=== PATIENT | female | born 1930 | race Caucasian/White ===

== ENCOUNTER → 2018-11-13 | Outpatient (CLI) | payer MEDICARE ==
--- NOTE | 2018-11-13 11:24 | Diagnostic Imaging Report ---
INDICATION: Pain in both hands. Time of exam: 10:58 AM Multiple views of the bilateral hands were obtained. The distal radius and ulna are intact bilaterally. Carpal bones are unremarkable apart from some triscaphe and first CMC joint degenerative changes bilaterally, greatest on the left. There appear to be subluxations of the MCP joints of the second and third fingers on the right and left. In addition, there appear to be some erosive changes of the metatarsal heads on the left, numbers 2 and 3. Erosive changes appear to be in the marginal location. Generalized interphalangeal joint degenerative change without evidence of osseous erosions. Soft tissues are unremarkable. No soft tissue calcifications are seen. No fractures are identified. There is generalized demineralization bilaterally. IMPRESSION: 1. 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 2. Generalized demineralization. There is subluxations of the second and third MCP joints bilaterally. There also appear to be some osseous marginal erosive changes on the left involving the second and third distal metacarpals. Dictated by: Dictated on workstation # [id number]
== END ==
LOC: RAD FS 10:53
PROVIDERS: ATTEND Family Medicine
DX: M19.041 Primary osteoarthritis, right hand (principal); M19.042 Primary osteoarthritis, left hand; M81.8 Other osteoporosis without current pathological fracture; M24.842 Other specific joint derangements of left hand, not elsewhere classified; M24.841 Other specific joint derangements of right hand, not elsewhere classified

== ENCOUNTER 2019-07-24 13:37 | Emergency (ER) | payer MEDICARE ==
[~2019-07-24] VITALS: Ht 152 cm; Wt 59.0 kg
--- NOTE | 2019-07-24 14:54 | ED Lower Extremity ---
General Chief Complaint: General Problems/Pain Stated Complaint: FEET SWELLING/CRAMPING Nursing Triage Note: PT REPORTS SWOLLEN FEET X 5 DAYS. CRAMPING IN HER LEGS AT NIGHT AND SOME INTERMITTENT SHORTNESS OF BREATH. Nursing Sepsis Screen: No Definite Risk Source: patient Exam Limitations: no limitations (CHRISTY HUANG MED STUDENT) History of Present Illness Date Seen by Provider: Jul 24, 2019 Time Seen by Provider: 14:43 Initial Comments Pt presents to ED with chief complaint of muscle cramps beginning four days ago. She states that cramps only occur in her left midfoot, around the arch, and only occur at night. Pain is severe, 10/10 at its worst, and is not improved with ibuprofen. Pain does not radiate, lasts for approximately two minutes when cramps begins, and is resolved completely when they end. Onset: last week Pain/Injury Location: left foot (CHRISTY HUANG MED STUDENT) Allergies and Home Medications Patient Home Medication List Home Medication List Reviewed: Yes (CHRISTY HUANG MED STUDENT) Home Medication List Reviewed: Yes (ROSINA SWENSON MD) Review of Systems Constitutional: No chills, No diaphoresis, No fever, No weakness EENTM: hearing loss (states this has been progressive for a couple years), eye pain (intermittent, brief left eye pain, stable for one year), vision loss (hx of macular degeneration ); No ear pain, No mouth pain, No nose pain, No throat pain Respiratory: No cough; short of breath (resolves with rest ) Cardiovascular: edema (complains of left foot swelling ); No palpitations Gastrointestinal: No abdominal pain, No constipation; diarrhea (ongoing, managed with medication ), heartburn; No nausea, No vomiting Genitourinary: No discharge, No incontinence, No pain Musculoskeletal: see HPI; No back pain; joint pain, muscle cramps Skin: No lesions, No lumps, No rash Psychiatric/Neurological: Denies Anxiety, Denies Depressed, Denies Headache (CHRISTY HUANG MED STUDENT) Respiratory: No cough; short of breath (resolves with rest ) Cardiovascular: No chest pain; edema (complains of left foot swelling ) Musculoskeletal: joint pain, muscle cramps (ROSINA SWENSON MD) All Other Systems Reviewed Negative Unless Noted: Yes (ROSINA SWENSON MD) Past Yayfvad-Mxruyp-Xuttbm Hx Past Med/Social Hx: Reviewed Nursing Past Med/Soc Hx (ROSINA SWENSON MD) Patient Social History Alcohol Use: Denies Use Recreational Drug Use: No Smoking Status: Never a Smoker 2nd Hand Smoke Exposure: No Recent Foreign Travel: No Contact w/Someone Who Travel: No Recent Infectious Disease Expo: No Recent Hopitalizations: No Physical Abuse: No Sexual Abuse: No Mistreated: No Fear: No (CHRISTY HUANG MED STUDENT) Seasonal Allergies Seasonal Allergies: No (CHRISTY HUANG MED STUDENT) Past Medical History Surgeries: Yes Gallbladder Respiratory: Yes COPD Cardiac: Yes Hypertension Neurological: Yes Neuropathy Genitourinary: No Gastrointestinal: Yes Gastroesophageal Reflux Musculoskeletal: No Endocrine: No HEENT: No Cancer: No Psychosocial: Yes Depression Integumentary: No (CHRISTY HUANG MED STUDENT) Family Medical History Reviewed Nursing Family Hx (ROSINA SWENSON MD) Cancer (mother, stomach ), Diabetes (brother) (CHRISTY HUANG MED STUDENT) Physical Exam Vital Signs Vital Signs - First Documented 07/24/19 14:14 Temp 36.4 Pulse 97 Resp 24 B/P (MAP) 131/67 (88) Pulse Ox 100 O2 Delivery Room Air (ROSINA SWENSON MD) Vital Signs Capillary Refill : Less Than 3 Seconds (CHRISTY HUANG MED STUDENT) Height, Weight, BMI Height: '" Weight: lbs. oz. kg; 25.00 BMI Method: General Appearance: WD/WN, thin HEENT: PERRL/EOMI, pharynx normal Neck: non-tender, supple Cardiovascular: regular rate, rhythm, no edema, no gallop, no murmur Respiratory: chest non-tender, lungs clear, normal breath sounds, no respiratory distress, no accessory muscle use Gastrointestinal: non tender, soft Ankles: bilateral ankle non-tender, bilateral ankle normal inspection, bilateral ankle normal range of motion Feet: bilateral foot non-tender, bilateral foot normal inspection, bilateral foot normal range of motion; left foot swelling (+2 pitting pedal edema ) Neurologic/Tendon: normal sensation, normal motor functions Neurologic/Psychiatric: alert, oriented x 3 Skin: warm/dry, pallor Lymphatic: no adenopathy (anterior/posterior cervical, supra/infraclavicular ) (CHRISTY HUANG,MED STUDENT) General Appearance: WD/WN, no apparent distress, thin Cardiovascular: regular rate, rhythm, no murmur Respiratory: lungs clear, normal breath sounds Neurologic/Psychiatric: alert, oriented x 3 Skin: normal color, warm/dry, other (mild edema to bilateral feet that is nonpitting. Good cap refill bilateral. Normal movement.) (ROSINA SWENSON MD) Progress/Results/Core Measures Results/Orders Lab Results Laboratory Tests Test 07/24/19 15:05 Range/Units White Blood Count 2.5 L 4.3-11.0 10^3/uL Red Blood Count 4.03 L 4.35-5.85 10^6/uL Hemoglobin 11.5 11.5-16.0 G/DL Hematocrit 36 35-52 % Mean Corpuscular Volume 90 80-99 FL Mean Corpuscular Hemoglobin 29 25-34 PG Mean Corpuscular Hemoglobin Concent 32 32-36 G/DL Red Cell Distribution Width 13.8 10.0-14.5 % Platelet Count 171 130-400 10^3/uL Mean Platelet Volume 9.0 7.4-10.4 FL Neutrophils (%) (Auto) 64 42-75 % Lymphocytes (%) (Auto) 27 12-44 % Monocytes (%) (Auto) 6 0-12 % Eosinophils (%) (Auto) 2 0-10 % Basophils (%) (Auto) 0 0-10 % Neutrophils # (Auto) 1.6 L 1.8-7.8 X 10^3 Lymphocytes # (Auto) 0.7 L 1.0-4.0 X 10^3 Monocytes # (Auto) 0.2 0.0-1.0 X 10^3 Eosinophils # (Auto) 0.0 0.0-0.3 10^3/uL Basophils # (Auto) 0.0 0.0-0.1 10^3/uL Sodium Level 140 135-145 MMOL/L Potassium Level 4.2 3.6-5.0 MMOL/L Chloride Level 103 98-107 MMOL/L Carbon Dioxide Level 25 21-32 MMOL/L Anion Gap 12 5-14 MMOL/L Blood Urea Nitrogen 12 7-18 MG/DL Creatinine 0.76 0.60-1.30 MG/DL Estimat Glomerular Filtration Rate > 60 BUN/Creatinine Ratio 16 Glucose Level 100 70-105 MG/DL Calcium Level 9.0 8.5-10.1 MG/DL Magnesium Level 2.1 1.6-2.4 MG/DL (ROSINA SWENSON MD) My Orders Orders - ROSINA SWENSON MD Basic Metabolic Panel (07/24/19 14:51) Magnesium (07/24/19 14:51) Cbc With Automated Diff (07/24/19 14:52) (ROSINA SWENSON MD) Vital Signs/I&O 07/24/19 14:14 Temp 36.4 Pulse 97 Resp 24 B/P (MAP) 131/67 (88) Pulse Ox 100 O2 Delivery Room Air (ROSINA SWENSON MD) Blood Pressure Mean: 88 Progress Progress Note : Time: 14:59 Progress Note Seen and evaluated. Ordering CMP, CBC and Mg. (CHRISTY HUANG,MED STUDENT) Progress Note : Progress Note I have seen and evaluated the patient and agree with above except as indicated. Have directed the plan of care. Patient is here with mild swelling of her feet especially on the left with some cramping. She's had this occasionally over the last 4 nights. She has not taken anything for this. She does have appointment with her primary care doctor on Saturday. We will check basic labs. Monitor patient. 1554: Labs complete and no significant findings. I will send a copy of the chart to Dr. Parr. Discharged home with return precautions. Patient verbalize understanding of instructions and agreement with plan. (ROSINA SWENSON MD) Departure Impression Primary Impression: Dependent edema Disposition: 01 HOME, SELF-CARE Condition: Stable Departure-Patient Inst. Decision time for Depature: 16:00 (ROSINA SWENSON MD) Referrals: NOEMY PARR MD (PCP/Family) Primary Care Physician Patient Instructions: Dependent Edema (DC) Add. Discharge Instructions: All discharge instructions reviewed with patient and/or family. Voiced understanding. Follow-up with your doctor on Saturday as scheduled. Return for worse pain, swelling, weakness, breathing problems or other concerns as needed. Elevate your feet several times daily to reduce swelling. You may take Tylenol prior to going to bed at nighttime. Copy Copies To 1: NOEMY PARR MD, DREW,MED STUDENT Jul 24, 2019 14:54 ROSINA SWENSON MD Jul 24, 2019 15:56
[2019-07-24 15:19] LABS: BASOPHILS % (AUTO) 0 % (0-10); EOSINOPHILS % (AUTO) 2 % (0-10); HEMATOCRIT 36 % (35-52); HEMOGLOBIN 11.5 G/DL (11.5-16.0); LYMPHOCYTES # (AUTO) 0.7 X 10^3 (1.0-4.0); LYMPHOCYTES % (AUTO) 27 % (12-44); MEAN CORPUSCULAR HEMOGLOBIN 29 PG (25-34); MEAN CORPUSCULAR HGB CONC 32 G/DL (32-36); MEAN CORPUSCULAR VOLUME 90 FL (80-99); MONOCYTES # (AUTO) 0.2 X 10^3 (0.0-1.0); MONOCYTES % (AUTO) 6 % (0-12); NEUTROPHILS # (AUTO) 1.6 X 10^3 (1.8-7.8); NEUTROPHILS % (AUTO) 64 % (42-75); PLATELET COUNT 171 10^3/uL (130-400); RED CELL DISTRIBUTION WIDTH 13.8 % (10.0-14.5); WHITE BLOOD COUNT 2.5 10^3/uL (4.3-11.0)
[2019-07-24 15:36] LABS: BUN/CREATININE RATIO 16; CARBON DIOXIDE 25 MMOL/L (21-32); CHLORIDE 103 MMOL/L (98-107); CREATININE SERUM 0.76 MG/DL (0.60-1.30); GFR ESTIMATED > 60; GLUCOSE 100 MG/DL (70-105); MAGNESIUM 2.1 MG/DL (1.6-2.4); POTASSIUM 4.2 MMOL/L (3.6-5.0); SODIUM 140 MMOL/L (135-145)
[2019-07-24 16:00] VITALS: BP 152/74
== END 2019-07-24 16:00 | disposition home or self-care (01) ==
LOC: EDUNIT# 13:37 → ER FS 13:38
DX: R60.0 Localized edema (principal); J44.9 Chronic obstructive pulmonary disease, unspecified; I10 Essential (primary) hypertension; G62.9 Polyneuropathy, unspecified; K21.9 Gastro-esophageal reflux disease without esophagitis; F32.9 Major depressive disorder, single episode, unspecified
CPT/HCPCS: 36415; 80048; 83735; 85025

== ENCOUNTER 2019-07-28 02:59 | Emergency (ER) | payer MEDICARE ==
[~2019-07-28] VITALS: Ht 152.4 cm; Wt 59.5 kg
--- NOTE | 2019-07-28 03:10 | ED General ---
General Stated Complaint: WEAKNESS Source of Information: Patient, EMS History of Present Illness Date Seen by Provider: Jul 28, 2019 Time Seen by Provider: 03:10 Initial Comments 89-year-old female brought in by EMS. EMS was called because patient reports that she "can't walk" however when EMS arrived patient got up and walked over to the cot without difficulty. She does report she had a fever that broke yesterday. Maybe an occasional cough with some chest pain with the cough. She reports some nausea but no vomiting. She denies any urinary symptoms. Patient is very vague in her complaint otherwise. Allergies and Home Medications Allergies Coded Allergies: fentanyl (Verified Allergy, Unknown, 07/28/19) Home Medications Cephalexin 500 Mg Capsule, 500 MG PO BID Prescribed by: ISAC MCNALLY on 07/28/19 3925 Patient Home Medication List Home Medication List Reviewed: Yes Review of Systems Review of Systems Constitutional: No chills, No diaphoresis; fever, weakness EENTM: no symptoms reported Respiratory: cough; No short of breath Cardiovascular: No chest pain, No palpitations Gastrointestinal: No diarrhea; nausea; No vomiting Genitourinary: no symptoms reported Musculoskeletal: no symptoms reported Skin: no symptoms reported Psychiatric/Neurological: No Symptoms Reported Immunological/Allergic: no symptoms reported Past Ktrbawj-Mfsbgm-Zpljoe Hx Past Med/Social Hx: Reviewed Nursing Past Med/Soc Hx Patient Social History 2nd Hand Smoke Exposure: No Recent Foreign Travel: No Contact w/Someone Who Travel: No Recent Hopitalizations: No Seasonal Allergies Seasonal Allergies: No Past Medical History Surgeries: Yes Gallbladder Respiratory: Yes COPD Cardiac: Yes Hypertension Neurological: Yes Neuropathy Genitourinary: No Gastrointestinal: Yes Gastroesophageal Reflux Musculoskeletal: No Endocrine: No HEENT: No Cancer: No Psychosocial: Yes Depression Integumentary: No Family Medical History Cancer, Diabetes Physical Exam Vital Signs Vital Signs - First Documented 07/28/19 03:00 Temp 37.1 Pulse 96 Resp 16 B/P (MAP) 112/60 (77) Pulse Ox 99 O2 Delivery Room Air Capillary Refill : Height, Weight, BMI Height: '" Weight: lbs. oz. kg; 25.00 BMI Method: General Appearance: No Apparent Distress, WD/WN, Thin Eyes: Bilateral Eye Normal Inspection HEENT: PERRL/EOMI, TMs Normal Neck: Full Range of Motion, Normal Inspection Respiratory: Lungs Clear, Normal Breath Sounds, No Accessory Muscle Use Cardiovascular: Regular Rate, Rhythm, No Edema, Normal Peripheral Pulses Gastrointestinal: Non Tender, Soft Extremity: Normal Capillary Refill, Normal Range of Motion Neurologic/Psychiatric: Alert, Oriented x3, No Motor/Sensory Deficits, Normal Mood/Affect, slot floorperson II-XII Norm as Tested Skin: Normal Color, Warm/Dry Lymphatic: No Adenopathy Progress/Results/Core Measures Suspected Sepsis SIRS Temperature: Pulse: Respiratory Rate: Laboratory Tests 07/28/19 03:09: White Blood Count 4.1L Blood Pressure / Mean: Laboratory Tests 07/28/19 03:09: Creatinine 0.98, Platelet Count 150, Total Bilirubin 1.2H Results/Orders Lab Results Laboratory Tests Test 07/28/19 03:09 07/28/19 03:44 Range/Units White Blood Count 4.1 L 4.3-11.0 10^3/uL Red Blood Count 4.05 L 4.35-5.85 10^6/uL Hemoglobin 11.7 11.5-16.0 G/DL Hematocrit 36 35-52 % Mean Corpuscular Volume 89 80-99 FL Mean Corpuscular Hemoglobin 29 25-34 PG Mean Corpuscular Hemoglobin Concent 33 32-36 G/DL Red Cell Distribution Width 14.1 10.0-14.5 % Platelet Count 150 130-400 10^3/uL Mean Platelet Volume 10.4 7.4-10.4 FL Neutrophils (%) (Auto) 85 H 42-75 % Lymphocytes (%) (Auto) 7 L 12-44 % Monocytes (%) (Auto) 7 0-12 % Eosinophils (%) (Auto) 0 0-10 % Basophils (%) (Auto) 0 0-10 % Neutrophils # (Auto) 3.5 1.8-7.8 X 10^3 Lymphocytes # (Auto) 0.3 L 1.0-4.0 X 10^3 Monocytes # (Auto) 0.3 0.0-1.0 X 10^3 Eosinophils # (Auto) 0.0 0.0-0.3 10^3/uL Basophils # (Auto) 0.0 0.0-0.1 10^3/uL Neutrophils % (Manual) 68 % Lymphocytes % (Manual) 7 % Monocytes % (Manual) 10 % Eosinophils % (Manual) 0 % Basophils % (Manual) 0 % Band Neutrophils 15 % Blood Morphology Comment NORMAL Sodium Level 135 135-145 MMOL/L Potassium Level 3.5 L 3.6-5.0 MMOL/L Chloride Level 96 L 98-107 MMOL/L Carbon Dioxide Level 24 21-32 MMOL/L Anion Gap 15 H 5-14 MMOL/L Blood Urea Nitrogen 15 7-18 MG/DL Creatinine 0.98 0.60-1.30 MG/DL Estimat Glomerular Filtration Rate 53 BUN/Creatinine Ratio 15 Glucose Level 136 H 70-105 MG/DL Calcium Level 9.0 8.5-10.1 MG/DL Corrected Calcium 8.9 8.5-10.1 MG/DL Total Bilirubin 1.2 H 0.1-1.0 MG/DL Aspartate Amino Transf (AST/SGOT) 13 5-34 U/L Alanine Aminotransferase (ALT/SGPT) 10 0-55 U/L Alkaline Phosphatase 78 40-136 U/L Total Protein 7.1 6.4-8.2 GM/DL Albumin 4.1 3.2-4.5 GM/DL Lipase 7 L 8-78 U/L Urine Color YELLOW Urine Clarity SLIGHTLY CLOUDY Urine pH 5.0 5-9 Urine Specific [place] >1.030 1.016-1.022 Urine Protein 1+ H NEGATIVE Urine Glucose (UA) NEGATIVE NEGATIVE Urine Ketones TRACE H NEGATIVE Urine Nitrite NEGATIVE NEGATIVE Urine Bilirubin 2+ H NEGATIVE Urine Urobilinogen 2.0 < = 1.0 MG/DL Urine Leukocyte Esterase 1+ H NEGATIVE Urine RBC (Auto) NEGATIVE NEGATIVE Urine RBC /HPF Urine WBC /HPF Urine Crystals /LPF Urine Bacteria /HPF Urine Casts /LPF Urine Mucus /LPF Urine Culture Indicated NO Micro Results Microbiology 07/28/19 Influenza Types A,B Antigen (FELIX) - Final, Complete My Orders Orders - ISAC MCNALLY DO Cbc With Automated Diff (07/28/19 03:10) Comprehensive Metabolic Panel (07/28/19 03:10) Lipase (07/28/19 03:10) Ua Culture If Indicated (07/28/19 03:10) Influenza A And B Antigens (07/28/19 03:10) Accucheck Stat ONCE (07/28/19 03:10) Ed Iv/Invasive Line Start (07/28/19 03:10) Ekg Tracing (07/28/19 03:10) Monitor-Rhythm Ecg Trace Only (07/28/19 03:10) Chest 1 View Ap/Pa Only (07/28/19 03:10) Manual Differential (07/28/19 03:09) Vital Signs/I&O 07/28/19 07/28/19 03:00 04:41 Temp 37.1 37.0 Pulse 96 91 Resp 16 16 B/P (MAP) 112/60 (77) 121/42 Pulse Ox 99 100 O2 Delivery Room Air Room Air Capillary Refill : Progress Note : Time: 04:41 Progress Note Patient with abnormal imaging on her chest x-ray. I reviewed this with her that it may be early pneumonia versus an underlying mass. She also has a questionable UTI and likely had a recent viral illness. I will treat her with Keflex. She has an appointment next week with her primary care provider in which I recommended a repeat the x-ray and consider outpatient CT. Patient will be discharged home in stable condition and should return to the ER as needed. ECG Initial ECG Impression Date: Jul 28, 2019 Initial ECG Impression Time: 03:18 Initial ECG Rate: 96 Initial ECG Rhythm: Normal Sinus Initial ECG Impression: Nonspecific Changes Diagnostic Imaging Diagonstic Imaging: Xray Plain Films/CT/US/NM/MRI: chest Comments right sided infiltrate vs underlying mass Departure Impression Primary Impression: Viral syndrome Additional Impressions: Abnormal chest x-ray Urinary tract infection Qualified Codes: N39.0 - Urinary tract infection, site not specified Disposition: 01 HOME, SELF-CARE Condition: Stable Departure-Patient Inst. Referrals: NOEMY AGUILAR MD (PCP/Family) Primary Care Physician Keep already scheduled appointment Patient Instructions: Urinary Tract Infection, Adult (DC), Viral Syndrome (DC) Add. Discharge Instructions: Emergency department focuses on treating and ruling out life-threatening diseases. Whenever possible, a diagnosis is given. However, most patients are given an impression based on their history, physical exam, and workup during your brief time in the ER. Information about probable diagnosis and other educational material has been provided. Please take the time to read and understand this information. It is very important that you follow up with a physician as discussed during the visit today. Failure to adhere to your follow-up instructions may lead to severe disability, injury, or so please make sure to keep your appointments or obtain one as requested. Please keep in mind the emergency department is not designed to your primary care or "family doctor" and nonurgent issues are best evaluated by an outpatient physician Scripts Cephalexin (Cephalexin) 500 Mg Capsule 500 MG PO BID for 7 Days, #14 CAP Prov: ISAC MCNALLY DO 07/28/19 ISAC MCNALLY DO Jul 28, 2019 03:10
[2019-07-28 04:05] LABS: CLARITY,URINE SLIGHTLY CLOUDY; COLOR,URINE YELLOW; GLUCOSE, URINE (UA) NEGATIVE (NEGATIVE); KETONES,URINE TRACE (NEGATIVE); NITRITE,URINE NEGATIVE (NEGATIVE); PROTEIN,URINE 1+ (NEGATIVE)
[2019-07-28 04:06] LABS: BACTERIA,URINE QNS /HPF; BILIRUBIN,URINE 2+ (NEGATIVE); LEUKOCYTE ESTERASE ,URINE 1+ (NEGATIVE); RBC,URINE QNS /HPF; WBC,URINE QNS /HPF
[2019-07-28 04:06] LABS: WHITE BLOOD COUNT 4.1 10^3/uL (4.3-11.0)
[2019-07-28 04:07] LABS: BASOPHILS % (AUTO) 0 % (0-10); EOSINOPHILS % (AUTO) 0 % (0-10); HEMATOCRIT 36 % (35-52); HEMOGLOBIN 11.7 G/DL (11.5-16.0); LYMPHOCYTES # (AUTO) 0.3 X 10^3 (1.0-4.0); LYMPHOCYTES % (AUTO) 7 % (12-44); MEAN CORPUSCULAR HEMOGLOBIN 29 PG (25-34); MEAN CORPUSCULAR HGB CONC 33 G/DL (32-36); MEAN CORPUSCULAR VOLUME 89 FL (80-99); MEAN PLATELET VOLUME 10.4 FL (7.4-10.4); MONOCYTES # (AUTO) 0.3 X 10^3 (0.0-1.0); MONOCYTES % (AUTO) 7 % (0-12); NEUTROPHILS # (AUTO) 3.5 X 10^3 (1.8-7.8); NEUTROPHILS % (AUTO) 85 % (42-75); PLATELET COUNT 150 10^3/uL (130-400); RED CELL DISTRIBUTION WIDTH 14.1 % (10.0-14.5)
[2019-07-28 04:18] LABS: ALBUMIN 4.1 GM/DL (3.2-4.5); BILIRUBIN,TOTAL 1.2 MG/DL (0.1-1.0); CREATININE SERUM 0.98 MG/DL (0.60-1.30); POTASSIUM 3.5 MMOL/L (3.6-5.0); TOTAL PROTEIN 7.1 GM/DL (6.4-8.2)
[2019-07-28 04:29] LABS: BAND NEUTROPHILS 15 %; BASOPHILS % (MANUAL) 0 %; EOSINOPHILS % (MANUAL) 0 %; LYMPHOCYTES % (MANUAL) 7 %; MONOCYTES % (MANUAL) 10 %; NEUTROPHILS % (MANUAL) 68 %; RBC MORPH NORMAL
[2019-07-28 04:41] VITALS: BP 121/42
[2019-07-28] MEDS ORDERED: CEPH500C PO (04:46)
--- NOTE | 2019-07-28 07:31 | Diagnostic Imaging Report ---
INDICATION: Leg weakness and bronchitis. No prior examinations available for comparison. FINDINGS: There is cardiomegaly. There is some patchy bibasilar atelectasis and/or pneumonitis. There may be a left pleural effusion. No pneumothorax. Mediastinum is unremarkable. IMPRESSION: Patchy bibasilar atelectasis and/or pneumonitis and small left pleural effusion. Cardiomegaly. Dictated by: Dictated on workstation # [id number]
== END 2019-07-28 04:47 | disposition home or self-care (01) ==
LOC: EDUNIT# 02:59 → ER FS 03:02
DX: B34.9 Viral infection, unspecified (principal); N39.0 Urinary tract infection, site not specified; R91.8 Other nonspecific abnormal finding of lung field; J44.9 Chronic obstructive pulmonary disease, unspecified; I10 Essential (primary) hypertension; G62.9 Polyneuropathy, unspecified; F32.9 Major depressive disorder, single episode, unspecified; Z88.5 Allergy status to narcotic agent; K21.9 Gastro-esophageal reflux disease without esophagitis
CPT/HCPCS: 36415; 71045; 80053; 81000; 83690; 85007; 85027; 87804; 93005; 93041